=== PATIENT | female | born 1935 | race Caucasian/White ===

== ENCOUNTER → 2019-06-09 06:00 | Outpatient (REF) | payer MEDICARE, BC, SELFPAY | LOC: ANHLAB 06:00 | PROVIDERS: PCP Internal Medicine; Visit Provider Nurse Practitioner | DX: C44.722 Squamous cell carcinoma of skin of right lower limb, including hip (principal) | CPT/HCPCS: 88305; 88331 ==

== ENCOUNTER 2019-12-08 08:08 | Outpatient (CLI) | payer MEDICARE, BC, SELFPAY ==
--- NOTE | ~2019-12-08 | MM_ITS ---
EXAMINATION: MM screening [facility] BI w cameron HISTORY: Screening mammogram, history of right breast cancer TECHNIQUE: Craniocaudal and mediolateral oblique 3-D tomosynthesis images were obtained and synthetic 2-D images were generated. CAD analysis was submitted and interpreted. COMPARISON: 12/05/2018, 11/14/2017, 11/07/2016 BREAST PARENCHYMAL COMPOSITION: There are scattered areas of fibroglandular density. FINDINGS: There is chronic and unchanged architectural distortion in the right breast at the site of prior lumpectomy. There is no evidence of suspicious mass, calcification, or architectural distortion to suggest malignancy in either breast. There has been no suspicious interval change. IMPRESSION: 1. Stable changes of treatment for right breast cancer without mammographic evidence of malignancy. 2. Recommend routine screening mammography while the patient remains in good health. BI-RADS Category 2: Benign finding(s). Reviewed, dictated and finalized at location A. IMPRESSION: 1. Stable changes of treatment for right breast cancer without mammographic rhianna dence of malignancy. 2. Recommend routine screening mammography while the patient remains in good he alth. BI-RADS Category 2: Benign finding(s).
== END 2019-12-08 08:09 | disposition home or self-care (01) ==
LOC: ANHIMG 08:11
PROVIDERS: PCP Internal Medicine; Visit Provider Obstetrics & Gynecology
DX: Z12.31 Encounter for screening mammogram for malignant neoplasm of breast (principal)
CPT/HCPCS: 77063; 77067

== ENCOUNTER 2020-12-22 07:58 | Outpatient (CLI) | payer MEDICARE, BC, SELFPAY ==
--- NOTE | ~2020-12-22 | MM_ITS ---
EXAMINATION: MM screening [facility] w [facility]eron HISTORY: Screening mammogram TECHNIQUE: Craniocaudal and mediolateral oblique 3-D tomosynthesis images were obtained and synthetic 2-D images were generated. CAD analysis was submitted and interpreted. COMPARISON: 12/08/2019, 12/05/2018, 11/14/2017 bilateral digital screening mammogram examinations BREAST PARENCHYMAL COMPOSITION: The breasts are heterogeneously dense, which may obscure small masses . FINDINGS: There is chronic postoperative scarring and retraction at the lower inner quadrant of the r ight breast; history of right partial mastectomy and radiation treatment in 2001 for breast cancer. Scattered bilateral benign calcifications. There is no evidence of suspicious mass, calcification, or interval architectural distortion to sugge st malignancy in either breast. There has been no suspicious interval change. IMPRESSION: 1. No mammographic evidence of malignancy. 2. Recommend routine screening mammography in one year. BI-RADS Category 2: Benign finding(s). Reviewed, dictated and finalized at location A.
== END 2020-12-22 07:59 | disposition home or self-care (01) ==
LOC: ANHIMG 08:04
PROVIDERS: PCP Internal Medicine; Visit Provider Obstetrics & Gynecology
DX: Z12.31 Encounter for screening mammogram for malignant neoplasm of breast (principal)
CPT/HCPCS: 77063; 77067

== ENCOUNTER 2021-03-09 14:50 | Outpatient (CLI) | payer MEDICARE, BC, SELFPAY ==
--- NOTE | ~2021-03-09 | US_ITS ---
EXAMINATION: US carotid duplex BI DATE: 03/09/2021 15:38 INDICATION: Dizziness and giddiness. TECHNIQUE: Grayscale, color Doppler, and pulsed Doppler images of the cervical carotid arteries were obtained. The degree of vessel stenosis is placed in one of the following categories: normal, <50%, 5 0-69%, >=70% but less than near-occlusion, near-occlusion, or total occlusion. Note that percent sten osis relative to normal distal artery lumen diameter is indirectly measured from velocity measurement s as described by Kam, et al. Radiology 2003; 229:340-346. COMPARISON: None. FINDINGS: RIGHT: The right common carotid artery (CCA) peak systolic velocity (PSV) is 66 cm/s. The right internal car otid artery (ICA) PSV is 60 cm/s. The right ICA end-diastolic velocity (EDV) is 18 cm/s. The right IC A/CCA PSV ratio is 0.9. Grayscale and color Doppler images yield an estimate of <50% diameter reducti on from plaque in the ICA. There is antegrade flow in the right vertebral artery. LEFT: The left CCA PSV is 50 cm/s. The left ICA PSV is 80 cm/s. The left ICA EDV is 27 cm/s. The left ICA/C CA PSV ratio is 1.6. Grayscale and color Doppler images yield an estimate of <50% diameter reduction from plaque in the ICA. There is antegrade flow in the left vertebral artery. IMPRESSION: 1. <50% stenosis in the right internal carotid artery. 2. <50% stenosis in the left internal carotid artery. Reviewed, dictated and finalized at location A.
== END 2021-03-09 14:51 | disposition home or self-care (01) ==
LOC: ANHIMG 14:51
PROVIDERS: PCP Internal Medicine; Visit Provider Internal Medicine
DX: R42 Dizziness and giddiness (principal); I65.23 Occlusion and stenosis of bilateral carotid arteries
CPT/HCPCS: 93880

== ENCOUNTER 2022-01-16 10:19 | Outpatient (CLI) | payer MEDICARE, BC, SELFPAY ==
--- NOTE | ~2022-01-16 | MM_ITS ---
EXAMINATION: MM screening [facility] BI w cameron HISTORY: Screening mammogram TECHNIQUE: Craniocaudal and mediolateral oblique 3-D tomosynthesis images were obtained and synthetic 2-D images were generated. CAD analysis was submitted and interpreted. COMPARISON: 12/22/2020, 12/08/2019, 12/05/2018 bilateral screening mammogram examinations BREAST PARENCHYMAL COMPOSITION: The breasts are heterogeneously dense, which may obscure small masses . FINDINGS: Status post right partial mastectomy for breast cancer, with stable volume loss, scarring a nd retraction. There are scattered bilateral benign calcifications. There is no evidence of suspicious mass, calcifi cation, or architectural distortion to suggest malignancy in either breast. There has been no suspici ous interval change. IMPRESSION: 1. Status post right partial mastectomy for breast cancer. No mammographic evidence of malignancy. 2. Recommend routine screening mammography in one year. BI-RADS Category 2: Benign finding(s). Reviewed, dictated and finalized at location A. IMPRESSION: 1. Status post right partial mastectomy for breast cancer. No mammographic evid ence of malignancy. 2. Recommend routine screening mammography in one year. BI-RADS Category 2: Benign finding(s).
== END 2022-01-16 10:20 | disposition home or self-care (01) ==
LOC: ANHIMG 10:23
PROVIDERS: PCP Internal Medicine; Visit Provider Obstetrics & Gynecology
DX: Z12.31 Encounter for screening mammogram for malignant neoplasm of breast (principal)
CPT/HCPCS: 77063; 77067

== ENCOUNTER 2023-03-03 08:45 | Outpatient (CLI) | payer MEDICARE, BC, SELFPAY ==
--- NOTE | ~2023-03-03 | XR_ITS ---
Left Shoulder Technique: AP and scapular Y views were obtained. Clinical History: Pain Findings: No fracture or dislocation is seen. Osseous alignment is anatomic. Inferomedial humeral hea d osteophyte is present. Soft tissues are unremarkable. Impression: Mild to moderate degenerative change of the glenohumeral joint. Reviewed, dictated and finalized at [facility]. Impression: Mild to moderate degenerative change of the glenohumeral joint.
== END 2023-03-03 08:46 | disposition home or self-care (01) ==
PROVIDERS: PCP Internal Medicine; Visit Provider Physician Assistant
DX: L93.1 Subacute cutaneous lupus erythematosus (principal); M19.012 Primary osteoarthritis, left shoulder
CPT/HCPCS: 73030

== ENCOUNTER 2023-03-20 12:53 | Outpatient (CLI) | payer MEDICARE, BC, SELFPAY ==
--- NOTE | ~2023-03-20 | XR_ITS ---
EXAMINATION: XR lg joint inject/asp w image DATE: 03/20/2023 13:47 INDICATION: Primary osteoarthritis of left shoulder. TECHNIQUE: A time-out was performed to verify the patient's name, date of , and procedure to b e performed. The procedure including the risks, benefits, and alternatives was discussed with the pat ient. Risks discussed included bleeding and infection. The patient understood the risks and agreed to proceed. The skin overlying the left glenohumeral joint was prepped and draped in usual sterile fas hion. Anesthetic was administered with 1% lidocaine subcutaneously. A 22 G needle was advanced unde r fluoroscopic guidance into the joint. Subsequently, injectate consisting of 4 mL 1% lidocaine and 1 mL 80 mg/mL Depo-Medrol was instilled. The needle was removed and the entry site was cleaned and d ressed. There were no immediate complications. Fluoroscopy exposure time was 0.1 minutes. The total number of images was 1. FINDINGS: Real-time fluoroscopy demonstrates the needle in the left glenohumeral joint. Patient's stuart n prior to procedure:11/06. Patient's pain following the procedure: 08/08. IMPRESSION: 1. Fluoroscopy guided left glenohumeral joint injection of local anesthetic and steroid with decrease in the patient's presenting pain. Reviewed, dictated and finalized at location A.
== END 2023-03-20 12:54 | disposition home or self-care (01) ==
PROVIDERS: PCP Internal Medicine; Visit Provider Physician Assistant Surgical
DX: M19.012 Primary osteoarthritis, left shoulder (principal)
CPT/HCPCS: 20610; 77002; J1040

== ENCOUNTER 2023-05-26 09:21 | Outpatient (CLI) | payer MEDICARE, BC, SELFPAY ==
--- NOTE | ~2023-05-26 | MM_ITS ---
EXAMINATION: MM screening [facility] BI w cameron HISTORY: Screening mammogram TECHNIQUE: Craniocaudal and mediolateral oblique 3-D tomosynthesis images were obtained and synthetic 2-D images were generated. CAD analysis was submitted and interpreted. COMPARISON: 01/16/2022, 12/22/2020, 12/07/2020 BREAST PARENCHYMAL COMPOSITION: The breasts are heterogeneously dense, which may obscure small masses . FINDINGS: There are stable lumpectomy changes of the right breast. No suspicious mass, calcification, or architectural distortion are identified in either breast to suggest malignancy. There has been no suspicious interval change. IMPRESSION: 1. No mammographic evidence of malignancy. 2. Recommend routine screening mammography while the patient remains in good health. BI-RADS Category 2: Benign finding(s). Reviewed, dictated and finalized at location A. IMPRESSION: 1. No mammographic evidence of malignancy. 2. Recommend routine screening mammography while the patient remains in good he alth. BI-RADS Category 2: Benign finding(s).
== END 2023-05-26 09:22 | disposition home or self-care (01) ==
LOC: ANHIMG 09:24
PROVIDERS: PCP Internal Medicine; Visit Provider Internal Medicine
DX: Z12.31 Encounter for screening mammogram for malignant neoplasm of breast (principal)
CPT/HCPCS: 77063; 77067

== ENCOUNTER 2024-06-10 14:09 | Outpatient (CLI) | payer MEDICARE, BC, SELFPAY ==
--- NOTE | ~2024-06-10 | MM_ITS ---
EXAMINATION: MM screening [facility] w [facility]eron HISTORY: Screening mammogram TECHNIQUE: Craniocaudal and mediolateral oblique 3-D tomosynthesis images were obtained and synthetic 2-D images were generated. CAD analysis was submitted and interpreted. COMPARISON: 05/26/2023, 01/16/2022, 12/22/2020, 12/08/2019 BREAST PARENCHYMAL COMPOSITION:Dense: The breasts are heterogeneously dense, which may obscure small masses. FINDINGS: Stable postoperative change of the right breast. No suspicious mass, calcification, or new architectural distortion are identified in either breast to suggest malignancy. There has been no tamir picious interval change. IMPRESSION: No mammographic evidence of malignancy. Recommend routine screening mammography in one year. BI-RADS Category 2: Benign finding(s). Reviewed, dictated and finalized at [facility]. ER TENDER
== END 2024-06-10 14:10 | disposition home or self-care (01) ==
PROVIDERS: Visit Provider Internal Medicine
DX: Z12.31 Encounter for screening mammogram for malignant neoplasm of breast (principal)
CPT/HCPCS: 77063; 77067

== ENCOUNTER 2024-07-04 08:10 | Outpatient (CLI) | payer MEDICARE, BC, SELFPAY ==
--- NOTE | ~2024-07-04 | XR_ITS ---
EXAMINATION: XR UGI w barium swallow DATE: 07/04/2024 08:50 INDICATION: Epigastric abdominal pain. TECHNIQUE: The patient drank thick barium, gas-producing crystals, and thin barium. Fluoroscopy of th e esophagus, stomach, and proximal small bowel was performed. Fluoroscopy exposure time was 0.7 minut es. The total number of images was 251. COMPARISON: CT abdomen and pelvis 01/18/2009 FINDINGS: There is no mass or stricture of the esophagus. Esophageal motility is normal. There is no hiatal hernia. There was gastroesophageal reflux with provocative maneuvers. The stomach and proximal small bowel show normal folding patterns. IMPRESSION: 1. Gastroesophageal reflux with provocative maneuvers. Reviewed, dictated and finalized at location A. HALMIC TECHNOLOGIST
== END 2024-07-04 08:11 | disposition home or self-care (01) ==
PROVIDERS: PCP Internal Medicine; Visit Provider Internal Medicine
DX: K21.9 Gastro-esophageal reflux disease without esophagitis (principal)
CPT/HCPCS: 74240

== ENCOUNTER 2024-08-18 09:31 | Outpatient (CLI) | payer MEDICARE, BC, SELFPAY ==
--- NOTE | ~2024-08-18 | XR_ITS ---
EXAMINATION: XR lumbar spine 6V w bending DATE: 08/18/2024 10:08 INDICATION: Postlaminectomy syndrome, not elsewhere classified. TECHNIQUE: 7 views of lumbar spine including flexion and extension views were obtained. COMPARISON: Lumbar spine radiographs 07/04/2011 FINDINGS: There is 17 degrees levoscoliosis of lumbar spine. There is 4 mm retrolisthesis of L1 on L2 , L2 on L3, and L3 on L4. Vertebral body heights are normal. There is severely decreased disc height from L1-L2 through L5-S1. There is multilevel severe facet joint osteoarthritis. IMPRESSION: 1. Severe lumbar spondylosis. 2. Lumbar levoscoliosis. Reviewed, dictated and finalized at location B. P OPERATOR
--- NOTE | ~2024-08-18 | XR_ITS ---
EXAMINATION: XR sacroiliac joints min 3V DATE: 08/18/2024 10:08 INDICATION: Sacroiliitis, not elsewhere classified. TECHNIQUE: 3 views of the sacroiliac joints were obtained. COMPARISON: None. FINDINGS: There is lumbar levoscoliosis and severe spondylosis. No fracture. There is mild osteoarthr itis of the sacroiliac joints. IMPRESSION: 1. Mild osteoarthritis of the sacroiliac joints. No evidence of inflammatory arthropathy. Reviewed, dictated and finalized at location B. ERENCE SERVICES DIRECTOR IMPRESSION: 1. Mild osteoarthritis of the sacroiliac joints. No evidence of inflammatory ar thropathy.
--- NOTE | ~2024-08-18 | XR_ITS ---
EXAMINATION: XR hip BI 2V w AP pelvis DATE: 08/18/2024 10:08 INDICATION: Pain in unspecified hip. TECHNIQUE: An anteroposterior view of the pelvis and 2 views of each hip were obtained. COMPARISON: None. FINDINGS: There is lumbar levoscoliosis and severe spondylosis. No fracture. There is mild osteoarthr itis of the hip joints characterized by tiny osteophytes without joint space narrowing. IMPRESSION: 1. Mild osteoarthritis of the hips. Reviewed, dictated and finalized at location B. ITURE SPRAYER
== END 2024-08-18 09:32 | disposition home or self-care (01) ==
PROVIDERS: PCP Internal Medicine; Visit Provider Anesthesiology Pain Medicine
DX: M47.818 Spondylosis without myelopathy or radiculopathy, sacral and sacrococcygeal region (principal); M47.816 Spondylosis without myelopathy or radiculopathy, lumbar region; M41.86 Other forms of scoliosis, lumbar region; M16.0 Bilateral primary osteoarthritis of hip; M96.1 Postlaminectomy syndrome, not elsewhere classified
CPT/HCPCS: 72114; 72202; 73521

== ENCOUNTER 2024-08-29 10:08 | Outpatient (CLI) | payer MEDICARE, BC, SELFPAY ==
--- NOTE | ~2024-08-29 | MR_ITS ---
EXAMINATION: MR hip LT wo con DATE: 08/29/2024 11:06 INDICATION: Left hip pain. TECHNIQUE: Magnetic resonance imaging (MRI) of the left hip was performed without intravenous contras t. COMPARISON: Pelvis and hip radiographs 08/18/24 FINDINGS: Bones/cartilage: There is lumbar levoscoliosis and severe spondylosis. No fracture. The hip joints demonstrate tiny os teophytes. Small [id number] images of left hip demonstrate partial-thickness cartilage loss. Labrum: There is a tear of the left acetabular labrum. Fluid: There is a small left hip joint effusion. There is mild bilateral trochanter bursitis. Soft tissues: There are partial tears of the right gluteus minimus and gluteus medius tendons and left gluteus mini mus tendon. There is a partial tear of the left hamstring origin. There is mild right hamstring tendi nopathy. The iliopsoas tendons are normal. There is a 9 mm Bartholin cyst on the left. IMPRESSION: 1. Mild osteoarthritis of the hips. 2. Small left hip joint effusion. Reviewed, dictated and finalized at location A. TATION OPERATOR
--- NOTE | ~2024-08-29 | MR_ITS ---
EXAMINATION: MR lumbar spine wo con DATE: 08/29/2024 10:53 INDICATION: Radiculopathy, lumbar region. TECHNIQUE: Magnetic resonance imaging (MRI) of the lumbar spine was performed without intravenous con trast. Sequences included sagittal T2-weighted FSE, sagittal T2-weighted FS FSE, sagittal T1-weighted FSE, and axial T2-weighted FSE. COMPARISON: Lumbar spine MRI 07/11/2011 FINDINGS: There is 21 degrees levoscoliosis of lumbar spine. There is 6 mm retrolisthesis of L1 on L2 and 5 mm retrolisthesis of L2 on L3. Vertebral body heights are normal. There is severely decreased disc height from L1-L2 through L5-S1. There is ligamentum flavum hypertrophy at the disc levels from L1-L2 through L4-L5. The distal spinal cord signal intensity is normal. The conus medullaris is at L1 -L2. The following disc levels are specifically discussed: L1-L2: The disc is bulging and has an annular fissure. There is severe right and moderate left facet joint osteoarthritis. There is mild bilateral neural foraminal stenosis. There is mild central canal stenosis. L2-L3: The disc is bulging and has an annular fissure. There is severe bilateral facet joint osteoart hritis. There is moderate right and mild left neural foraminal stenosis. There is mild central canal stenosis. L3-L4: The disc is bulging and has an annular fissure. There is severe bilateral facet joint osteoart hritis. There is mild bilateral neural foraminal stenosis. There is mild central canal stenosis. L4-L5: The disc is bulging and has an annular fissure. There is severe bilateral facet joint osteoart hritis. There is mild bilateral neural foraminal stenosis. There is mild central canal stenosis. L5-S1: The disc is bulging and has an annular fissure. There is severe bilateral facet joint osteoart hritis. There is mild bilateral neural foraminal stenosis. There is mild central canal stenosis. IMPRESSION: 1. Severe lumbar spondylosis. 2. Lumbar levoscoliosis. Reviewed, dictated and finalized at location A. ERMAN HELPER
== END 2024-08-29 10:09 | disposition home or self-care (01) ==
LOC: MICIMG 10:09
PROVIDERS: PCP Internal Medicine; Visit Provider Anesthesiology Pain Medicine
DX: M47.816 Spondylosis without myelopathy or radiculopathy, lumbar region (principal); M41.86 Other forms of scoliosis, lumbar region; M16.0 Bilateral primary osteoarthritis of hip; M25.452 Effusion, left hip
CPT/HCPCS: 72148; 73721

== ENCOUNTER 2024-09-23 08:52 | Outpatient (CLI) | payer MEDICARE, BC, SELFPAY ==
--- NOTE | ~2024-09-23 | XR_ITS ---
CHEST RADIOGRAPH, PA AND LATERAL CLINICAL HISTORY: R05.9 - Cough, FU PNEUMONIA SYMPTOMS IMPROVED . COMPARISON: None available TECHNIQUE: PA and lateral views of the chest. FINDINGS The cardiomediastinal silhouette is unremarkable. The lungs are clear. Visualized osseous structures and soft tissues are unremarkable. IMPRESSION: No focal infiltrate or effusion. Reviewed, dictated and finalized at location A. DRILL OPERATOR HELPER
--- OUTSIDE RECORDS SUMMARY | 2024-09-23 09:25 | XMS_ITS | Continuity of Care Document ---
Author Organization [facility] Address [address] [place] [address] Phone Care Team Providers Care Copier Field Service Technician Name Role Phone Lamar Mari Unavailable Unavailable Procedures Procedure Date Eye Exam & Treatment IOLMaster Advance Directives Directive Yes / No Effective Date File Name No Information Encounters Encounter Description Practice Location Reason(s) For Visit Diagnoses Date Provider Providers Copied on Encounter [facility], [address], [place], [place], [id number], [place] tel:[phone] [facility] No Information 0 Jacey Newton. [address] , [address], [place], [address], [place]. tel:[phone] Referring Provider: Dallin Omer OD F, [address], [place], [address]. tel:[phone] Family History Family Member Type Diagnosis Age At Onset No Information Payers Payer name Insurance type Covered democrat ID Authoriza tion(s) [place] [id number] [place] FEP BL [id number] Social History Type Description Quantity Date Captured Comments Sex Female Smoking Status No Information Chief Complaint And Reason For Visit No Information Reason For Referral Reason For Referral No Information History Of Present Illness Encounter Date Complaint History Of Prese nt Illness No Information Functional Status Date Functional Assessmen t No Information Instructions Date Instruction Additional Infor mation No Information Assessments Type Assessment Date No Information Patient Care Teams Name Effective Dates (start - stop) Status Members No Information
--- OUTSIDE RECORDS SUMMARY | 2024-09-23 09:25 | XMS_ITS | Clinical Summary ---
Author Organization [id number] Address [address] [place] [id number] Phone Care Team Providers Care [employer] Operations Name Role Phone Cornelio Ortiz MD Unavailable [phone] Venkat Pedro MD Unavailable [phone] Juanito Henson DO Primary Care Provider [phone] Allergies Active Allergy Reactions Criticality Noted Date Comments Hydrocodone Hydrocodone-Acetaminophen Meperidine Itching Reaction: Itching, Propoxyphene-Acetaminophen Tramadol Medications levothyroxine (SYNTHROID) 25 mcg tablet 2020 Active hydroxychloroqui ne (PLAQUENIL) 200 mg tablet TAKE ONE TABLET BY MOUTH ONCE DAILY 90 tablet 1 08/05/2024 Active Active Problems Problem Noted Date Diagnosed Date Acute pain of left shoulder 03/02/2023 Assessment & Plan (03/02/2023 3:02 PM CDT): She reports onset of L shoulder/arm pain 4 days ago. At times feels the pain from her neck all the way down the arm stopping at the wrist. Currently pain is localized around the L shoulder with ttp over the deltoid but not the AC or GH joints. She has full active ROM and strength is 5/5 though she had pain with resisted abduction. Discussed obtaining imaging of her Cspine and shoulder and beginning a 2 week trial of meloxicam 7.5 mg daily. Reviewed risks of meloxicam including GI upset/PUD and nephrotoxicity; she does have a distant h/o RCC, underwent partial nephrectomy in 2003 and her renal studies have been stable since then. Also discussed use of acetaminophen up to 4,000 mg/day, recommended trying two ES Tylenol twice daily as they already have this at home. Pending XR findings and response to meloxicam, may benefit from trial of PT. Asked that she call with update in 1-2 weeks or sooner if worsening. 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 Recommend trial of diclofenac gel prn. Long-term use of hydroxychloroquine 10/11/2021 Assessment & Plan (04/14/2024 8:29 AM CDT): Maintain routine eye exams throughout the duration of taking hydroxychloroquine Assessment & Plan (03/02/2023 3:01 PM CDT): Maintain routine eye exams throughout the duration of taking hydroxychloroquine Assessment & Plan (11/08/2022 2:43 PM CDT): Maintain routine eye exams throughout the duration of taking hydroxychloroquine - due in June Assessment & Plan (04/12/2022 12:50 PM CDT): Maintain routine eye exams throughout the duration of taking hydroxychloroquine - due in June Assessment & Plan (10/11/2021 12:09 PM CDT): Maintain routine eye exams throughout the duration of taking hydroxychloroquine - up to date, request note Pain of left lower extremity 10/12/2020 Assessment & Plan (04/14/2024 10:51 AM CDT): Developed L hip/knee pain after vacation with increased walking/stairs. Improved now with Celebrex, she is planning to try coming off of this after she returns from a trip to the [place]. Request copy of records from ortho for review. Assessment & Plan (10/12/2020 12:18 PM CDT): LE pain at night, improves with stretching or walking. Can awaken her at times. Uncertain etiology, question cramping 2/2 electrolyte imbalance, check labs and encourage good hydration. Possible RLS. Follow up with PCP for persistent symptoms. Dizziness 10/12/2020 Assessment & Plan (10/12/2020 12:19 PM CDT): Pt complains of orthostasis as well as an intermittent feeling of being unsteady with ambulation. She expressed concern that it was 2/2 hydroxychloroquine, discussed lower suspicion based upon the description of the issue and the duration of time she has been taking this medication without issue. Encourage follow up with PCP to further evaluate. Subacute cutaneous lupus erythematosus 7 Overview (02/01/2017): Skin biopsy from left neck/shoulder revealed vacuolar alteration of the basal layer with apoptosis and lymphocytic infiltrate. Pathologist favoring lupus. Has neg MILA but strongly positive anti-SSA ab. Has no systemic complaints consistent with SLE so I suspect is subacute cutaneous lupus. Assessment & Plan (04/14/2024 8:28 AM CDT): Overall has felt well since last visit without rash or any systemic CTD symptoms. Continue hydroxychloroquine 200 mg once daily, reduced dose due to weight-based dosing. Obtain labs as below. Follow-up in 6 months or sooner as needed. Assessment & Plan (10/12/2023 12:52 PM CDT): Overall has felt well since last visit without rash or any systemic CTD symptoms. Continue hydroxychloroquine 200 mg once daily, reduced dose due to weight-based dosing. Obtain labs as below. Follow-up in 6 months or sooner as needed. Assessment & Plan (03/02/2023 2:57 PM CDT): Recent rash resolved. At baseline she feels/appears stable. Continue hydroxychloroquine 200 mg once daily, reduced dose due to weight-based dosing. Obtain labs as below. Follow-up in 6 months or sooner as needed. Assessment & Plan (11/08/2022 2:43 PM CDT): She continues to do well without systemic complaints and feels well overall. Continue hydroxychloroquine 200 mg once daily, reduced dose due to weight-based dosing. Obtain labs as below. Follow-up in 6 months or sooner as needed. Assessment & Plan (04/11/2022 3:50 PM CDT): She continues to do well without systemic complaints and feels well overall. Continue hydroxychloroquine 200 mg once daily, reduced dose due to weight-based dosing. Obtain labs as below. Follow-up in 6 months or sooner as needed. Assessment & Plan (10/11/2021 12:09 PM CDT): She continues to do well without systemic complaints and feels well overall. Continue hydroxychloroquine 200 mg once daily, reduced dose due to weight-based dosing. Obtain labs as below. Follow-up in 6 months or sooner as needed. Assessment & Plan (04/12/2021 10:05 AM CDT): She continues to do well without systemic complaints and feels well overall. Continue hydroxychloroquine 200 mg once daily, reduced dose due to weight-based dosing. Continue routine eye exams to monitor for hydroxychloroquine toxicity. Obtain labs as below. Follow-up in 6 months or sooner as needed. Assessment & Plan (10/11/2020 4:14 PM CDT): She continues to do well without systemic complaints and feels well overall. Continue hydroxychloroquine 200 mg once daily, discussed reduced dose due to weight-based dosing. Continue routine eye exams to monitor for hydroxychloroquine toxicity, up to date. Obtain labs as below. Follow-up in 6 months or sooner as needed. Assessment & Plan (04/20/2020 12:21 PM CDT): She continues to do well without systemic complaints and feels well overall. Continue hydroxychloroquine 200 mg once daily, discussed reduced dose due to weight-based dosing. Continue routine eye exams to monitor for hydroxychloroquine toxicity, up to date. Obtain labs as below. Follow-up in 6 months or sooner as needed. Assessment & Plan (10/21/2019 12:24 PM CDT): She continues to do well without systemic complaints and feels well overall. Continue hydroxychloroquine 200 mg daily which is weight based. Continue routine eye exams to monitor for hydroxychloroquine toxicity, due now. Obtain labs as below. Follow- up in 6 months or sooner as needed. Assessment & Plan (04/22/2019 10:56 AM CDT): She continues to do well with no recent skin eruptions although she does report some intermittent pruritus involving the abdomen. During these episodes there is no erythema or other skin eruption. She has no systemic complaints and feels well overall. Continue hydroxychloroquine 200 mg daily which is weight based. Continue routine eye exams to monitor for hydroxychloroquine toxicity, due in early 2019. Obtain labs as below. Follow-up in 6 months or sooner as needed. Assessment & Plan (10/21/2018 8:55 AM CDT): She continues to do well with no recent skin eruptions although she does report some intermittent pruritus involving the arms, flanks, and abdomen. During these episodes there is no erythema or other skin eruption. She has no systemic complaints and feels well overall. Continue hydroxychloroquine 200 mg daily which is weight based. Continue routine eye exams to monitor for hydroxychloroquine toxicity which she is up-to-date on, will await report. Obtain labs as below. Follow-up in 6 months or sooner as needed. Assessment & Plan (04/04/2018 8:49 AM CDT): She continues to do well with no recent skin eruptions although she does report some intermittent pruritus involving the arms, flanks, and abdomen. During these episodes there is no erythema or other skin eruption. She has no systemic complaints and feels well overall. Continue hydroxychloroquine 200 mg daily which is weight based. Continue routine eye exams to monitor for hydroxychloroquine toxicity which she is up-to-date on. Obtain labs as below. Follow-up in 6 months. Assessment & Plan (10/04/2017 8:54 AM COUNTER HELPER): Based on skin biopsy from left neck/shoulder revealed vacuolar alteration of the basal layer with apoptosis and lymphocytic infiltrate. Has negative MILA although positive anti-SSA abs. Has no systemic complaints. Had recent flare up of skin eruption on neck while in [place]. Symptoms resolved within a week of using topicort ointment. Has no skin lesions currently and feels well overall. Cont HCQ 200 mg daily which is weight based. Cont routine eye exams. Labs as below. F/u 6 months. Assessment & Plan (06/07/2017 8:53 AM COUNTER HELPER): Has negative MILA with strongly positive anti-SSA abs. Continues to do well with HCQ with no recurrence of skin eruptions. Has no systemic complaints. Cont HCQ although will decrease dose to 200 mg daily which is weight based. Pt tocont routine eye exams while on HCQ. Labs as below. F/u 4 months. Assessment & Plan (02/01/2017 9:12 AM CDT): Had been doing well until several days ago when had skin flare up on chest and abdomen area. Had not had any sun exposure. Lesions are pruritic and respond to topicort steroid solution. Has no other systemic complaints. Recent labs reviewed and look good. Cont HCQ 200 mg bid. Cont routine eye exams while on HCQ. Cont topicort topical solution bid prn for skin lesions. If they are persistent would likely benefit from dermatology evaluation. F/u 4 months. 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 Hx Other Medical 2000 Breast Lumpecto my; Laterality: right Hx Other Medical 2003 Small Kidney Re nal Mass Family History Medical History Relation Name Comments Heart disease Other Family history of Heart disease; Heart failure Other Family history of Congestive heart failure; Other Other Family history of Cancer, liver; Relation Name Status Comments Other Social History Tobacco Use Types Packs/Day Years Used Date Smoking Tobacco: Never Alcohol Use Standard Drinks/Week Comments Yes 0 (1 standard drink = 0.6 oz pur e alcohol) Personal Safety Answer Date Recorded Getting School Help Needed Not on file 07/14 Comments Unknown Sex and Gender Information Value Date Recorded Sex Assigned at Not on file Legal Sex Female 6:36 AM COUNTER HELPER Gender Identity Female 04/05/2021 6:59 PM CDT Sexual Orientation Not on file Obstetrics History Last Filed Vital Signs Vital Sign Reading Time Taken Comments Blood Pressure 120/66 04/14/2024 9:54 AM CDT Pulse 102 04/14/2024 9:54 AM CDT Temperature 36.4 C (97.5 F) 10/11/2021 10:49 AM CDT Respiratory Rate - - Oxygen Saturation 96% 03/02/2023 2:18 PM CDT Inhaled Oxygen Concentration - - Weight 48.8 kg (107 lb 9.6 oz) 04/14/2024 9:54 A M CDT Height 157.5 cm (5' 2 ) 04/14/2024 9:54 AM CDT Body Mass Index 19.68 04/14/2024 9:54 AM CDT Plan of Treatment Health Maintenance Due Date Last Done Comments Depression Screening 1935 Fall Risk Assessment 1935 DTaP/Tdap/Td Vaccine (1 - Tdap) 1946 Hepatitis B Screening 1953 Pneumococcal vaccine 65+ (1 of 2 - PCV) 1954 Zoster Vaccine (1 of 2) 1954 Well Visit 65+ 02/07/2000 Influenza Vaccine (#1) 2024 04/09/2020 Insurance MEDICARE [employer] Care Teams [employer] Relationship Specialty Start Date End Date Juanito Henson DO [address] [place] [address] PCP - General Internal Medicine 04/14/24 Cornelio Ortiz MD [address] [facility] [address] [place] [address] Rheumatology 06/07/17 Venkat Pedro MD [address] [facility] [address] [place] [address] Referring Physician Obstetrics and Gynecology 04/13/21
--- OUTSIDE RECORDS SUMMARY | 2024-09-23 09:25 | XMS_ITS | Clinical Summary ---
Author Organization [facility] Address [address] Sung: Epic Prelude ADT MARGARET MENJIVAR PEGGY [address] Care Team Providers Care Swift Tender Name Role Phone Unavailable Primary Care Provider Unavailabl e Medications hydrOXYchloroQU INE (PLAQUENIL) 200 mg tablet Take 1 Tablet (200 mg) by mouth daily. 90 Tablet 1 02/07/2023 11:58 AM CDT 11/09/2022 Active meloxicam (MOBIC) 7.5 mg tablet Take 1 Tablet (7.5 mg) by mouth daily. 30 Tablet 03/02/2023 5:55 PM CDT 03/02/2023 Active levothyroxine 25 mcg tablet Take 1 Tablet (25 mcg) by mouth daily. 90 Tablet 3 08/19/2024 3:48 PM MARKETING SUPPORT MANAGER 02/13/2024 Active celecoxib (CeleBREX) 200 mg capsule Take 1 Capsule (200 mg) by mouth daily. 30 Capsule 2 04/14/2024 2:16 PM CDT 03/26/2024 Active famotidine (PEPCID) 20 mg tablet Take 1 Tablet (20 mg) by mouth daily. 90 Tablet 1 07/05/2024 12:43 PM MARKETING SUPPORT MANAGER 07/04/2024 Active benzonatate (TESSALON) 200 mg capsule Take 1 Capsule (200 mg) by mouth 3 times daily as needed for cough 30 Capsule 07/31/2024 3:00 PM MARKETING SUPPORT MANAGER 07/31/2024 Active hydroxychloroqu ine (PLAQUENIL) 200 mg tablet TAKE ONE TABLET BY MOUTH ONCE DAILY 90 Tablet 1 08/06/2024 3:27 PM MARKETING SUPPORT MANAGER 08/05/2024 Active Social History Tobacco Use Types Packs/Day Years Used Date Smoking Tobacco: Never Assessed Comments Unknown Sex and Gender Information Value Date Recorded Sex Assigned at Not on file Legal Sex Female 3:27 PM CDT Gender Identity Not on file Sexual Orientation Not on file Plan of Treatment Health Maintenance Due Date Last Done Comments DTAP/TDAP/TD VACCINES (1 - Tdap) 1954 PNEUMOCOCCAL VACCINE 65+ YEARS (1 of 2 - PCV) 02/06/19 54 ZOSTER VACCINE (1 of 2) 1954 OSTEOPOROSIS SCREENING 02/07/2000 RSV VACCINE (60+ or ) (1 - 1-dose 75+ series) 2010 INFLUENZA VACCINE (#1) 2024 Insurance RX [facility] Medicare Part D
--- OUTSIDE RECORDS SUMMARY | 2024-09-23 09:25 | XMS_ITS | Referral Summary ---
Author Organization [id number] Address [address] [place] [phone] Phone Care Team Providers Care Door Repairman Name Role Phone Cornelio Ortiz MD Unavailable [phone] Venkat Pedro MD Unavailable Juanito Henson DO Primary Care Provider [phone] Allergies Active Allergy Reactions Criticality Noted Date [...] she returns from a trip to the [place]. Request copy of records from ortho for [...] months. Assessment & Plan (10/04/2017 8:54 AM BEEF CATTLE GRAZIER): Based on skin biopsy from left neck/shoulder revealed vacuolar alteration of the basal layer with apoptosis and lymphocytic infiltrate. Has negative MILA although positive anti-SSA abs. Has no systemic complaints. Had recent flare up of skin eruption on neck while in [place]. Symptoms resolved within a week of using topicort ointment. Has no skin lesions currently and feels well overall. Cont HCQ 200 mg daily which is weight based. Cont routine eye exams. Labs as below. F/u 6 months. Assessment & Plan (06/07/2017 8:53 AM BEEF CATTLE GRAZIER): Has negative MILA with strongly positive anti-SSA [...] F/u 4 months. Renal cell carcinoma 03/08/2015 Social History Tobacco Use Types Packs/Day Years Used Date Smoking Tobacco: Never Alcohol Use Standard Drinks/Week Comments Yes 0 (1 standard drink = 0.6 oz pur e alcohol) Personal Safety Answer Date Recorded Getting School Help Needed Not on file 07/14 Comments Unknown Sex and Gender Information Value Date Recorded Sex Assigned at Not on file Legal Sex Female 6:36 AM BEEF CATTLE GRAZIER Gender Identity Female 04/05/2021 6:59 PM CDT Sexual Orientation Not on file Last Filed Vital Signs Vital Sign Reading [...] 04/14/2024 9:54 AM CDT Plan of Treatment Not on file Insurance MEDICARE [facility] Care Teams Door Repairman Relationship Specialty Start Date End Date Juanito Henson DO [address] [place] [address] PCP - General Internal Medicine 04/14/24 Cornelio Ortiz MD [address] [facility] [address] [place] [address] Rheumatology 06/07/17 Venkat Pedro MD [address] [facility] [address] [place] [address] Referring Physician Obstetrics and Gynecology 04/13/21
== END 2024-09-23 08:53 | disposition home or self-care (01) ==
PROVIDERS: PCP Internal Medicine; Visit Provider Internal Medicine
DX: R05.9 Cough, unspecified (principal)
CPT/HCPCS: 71046